=== PATIENT | male | born 1970 | race Caucasian/White ===

== ENCOUNTER 2019-07-23 18:21 | Emergency (ER) | payer OTHER ==
[~2019-07-23] VITALS: Ht 177.8 cm; Wt 93.0 kg
[2019-07-23] MEDS ORDERED: TESSALON PERLE100 M1 PO (19:30)
[2019-07-23] MEDS ORDERED: PREDNISONE50 MG PO (19:30)
[2019-07-23] MEDS ORDERED: NAPROSYN500 MG PO (19:30)
[2019-07-23] MEDS ORDERED: ZITHROMAX250 MG PO (19:30)
== END 2019-07-23 20:15 | disposition home or self-care (01) ==
LOC: ED 18:21
DX: J20.9 Acute bronchitis, unspecified (principal); F17.200 Nicotine dependence, unspecified, uncomplicated; Z91.040 Latex allergy status

== ENCOUNTER 2023-08-07 01:16 | Emergency (ER) | payer BC ==
[~2023-08-07] VITALS: Ht 177.8 cm; Wt 88.0 kg
[~2023-08-07 01:16] MED LIST: NAPROSYN500 MG PO; ONDANSETRON4 MG SL; PREDNISONE50 MG PO; TESSALON PERLE100 M1 PO; VIBRAMYCIN100 MG PO; ZITHROMAX250 MG PO
[2023-08-07] MEDS ORDERED: REGLAN10 M1 PO (03:50)
== END 2023-08-07 04:15 | disposition home or self-care (01) ==
LOC: ED 01:16
DX: A77.40 Ehrlichiosis, unspecified (principal); R51.9 Headache, unspecified; R50.9 Fever, unspecified; M79.10 Myalgia, unspecified site; Z98.890 Other specified postprocedural states

== ENCOUNTER 2025-05-15 08:20 | Emergency (ER) | payer OTHER ==
[~2025-05-15] VITALS: Ht 177.8 cm; Wt 88.5 kg
[~2025-05-15 08:20] MED LIST changes: +REGLAN10 M1 PO
[2025-05-15] MEDS ORDERED: VIBRAMYCIN100 MG PO (08:39)
== END 2025-05-15 08:42 | disposition home or self-care (01) ==
LOC: ED 08:20
DX: S40.862A Insect bite (nonvenomous) of left upper arm, initial encounter (principal); Z88.1 Allergy status to other antibiotic agents; Z79.899 Other long term (current) drug therapy; Z98.890 Other specified postprocedural states; W57.XXXA Bitten or stung by nonvenomous insect and other nonvenomous arthropods, initial encounter; Y93.89 Activity, other specified; Y92.89 Other specified places as the place of occurrence of the external cause; Y99.8 Other external cause status